=== PATIENT | male | born 1995 | race Caucasian/White ===

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

== ENCOUNTER 2017-02-27 01:01 | Emergency (ER) | payer MEDICAID, OTHER ==
[2017-02-27 01:06] VITALS: TEMP 97.7
[2017-02-27] MEDS ORDERED: HYDRALAZINE HYDROCHLORIDE 20 MG/ML SOL IM PRN (01:12)
[2017-02-27] MEDS ORDERED: HYDRALAZINE HYDROCHLORIDE 20 MG/ML SOL ONE (01:14)
[2017-02-27 01:27] VITALS: O2SAT 98
[2017-02-27 01:47] VITALS: BP 155/81; PULSE 91; RESP 15
== END 2017-02-27 01:58 | disposition home or self-care (01) ==
LOC: ED 01:01
DX: I10 Essential (primary) hypertension (principal); R42 Dizziness and giddiness; R06.00 Dyspnea, unspecified; R07.9 Chest pain, unspecified
CPT/HCPCS: 93005; 99284; J0360

== ENCOUNTER 2017-08-30 15:33 | Emergency (ER) | payer MEDICAID, OTHER ==
[2017-08-30 15:33] VITALS: O2SAT 98
[2017-08-30] MEDS ORDERED: KETOROLAC TROMETHAMINE 30 MG/ML SOL IV ONE (15:39)
[2017-08-30] MEDS ORDERED: HYDROMORPHONE HCL 2 MG/ML SOL IV ONE (15:39)
[2017-08-30] MEDS ORDERED: KETOROLAC TROMETHAMINE 30 MG/ML SOL ONE (15:41)
[2017-08-30] MEDS ORDERED: SODIUM CHLORIDE 0.9% 1000 ML SOL IV SCH (15:45)
[2017-08-30] MEDS ORDERED: HYDROMORPHONE 1 MG/ML SYRINGE ONE (15:52)
[2017-08-30 15:54] VITALS: RESP 18; TEMP 97.9
[2017-08-30 15:56] LABS: CALCIUM 9.3 mg/dl (8.5-10.1); CARBON DIOXIDE 29.9 mEq/L (21-32); CREATININE 1.01 mg/dl (0.80-1.30); POTASSIUM 4.2 mMol/L (3.5-5.1)
[2017-08-30] MEDS ORDERED: SODIUM CHLORIDE 0.9% FLUSH 10 ML SOL IV PRN (15:59)
[2017-08-30] MEDS ORDERED: LIDOCAINE HCL 2% (VISCOUS) 20 ML SOL MT ONE (16:04)
[2017-08-30] MEDS ORDERED: LIDOCAINE HCL 2% (VISCOUS) 20 ML SOL ONE (16:12)
[2017-08-30 17:25] VITALS: BP 132/87; PULSE 57
== END 2017-08-30 17:30 | disposition home or self-care (01) | DRG 935 ==
LOC: ED 15:33
DX: T20.10XA Burn of first degree of head, face, and neck, unspecified site, initial encounter (principal); T22.132A Burn of first degree of left upper arm, initial encounter; T22.131A Burn of first degree of right upper arm, initial encounter; T31.0 Burns involving less than 10% of body surface
CPT/HCPCS: 71045; 80048; 82550; 96365; 96374; 96375; 99284; J1885; A9270-GY; J1170

== ENCOUNTER 2018-05-07 21:35 | Emergency (ER) | payer OTHER ==
[2018-05-07 23:43] VITALS: BP 141/84; PULSE 97; RESP 16; TEMP 97.8; O2SAT 97
== END 2018-05-07 23:00 | disposition home or self-care (01) | DRG 153 ==
LOC: ED 21:35
DX: J06.9 Acute upper respiratory infection, unspecified (principal); R09.81 Nasal congestion
CPT/HCPCS: 99282

== ENCOUNTER 2018-09-17 17:07 | Emergency (ER) | payer OTHER ==
[2018-09-17 17:38] VITALS: RESP 18
[2018-09-17] MEDS ORDERED: BUPIVACAINE HCL 0.25% MPF 30 ML SOL INFIL ONE ×2 (17:51→17:55)
[2018-09-17] MEDS ORDERED: LIDOCAINE BUFFERED 1% 50 ML SOL SC ONE (17:52)
[2018-09-17] MEDS ORDERED: LIDOCAINE HCL 1% MPF 30 SOL ONE (17:56)
[2018-09-17] MEDS ORDERED: LIDOCAINE HCL 1% MPF 30 SOL INFIL ONE (17:59)
[2018-09-17] MEDS ORDERED: BACITRACIN 500 U/GM OIN TOP ONE ×2 (18:46→18:53)
[2018-09-17 19:26] VITALS: BP 125/84; PULSE 72; TEMP 97.3; O2SAT 95
== END 2018-09-17 19:18 | disposition home or self-care (01) | DRG 566 ==
LOC: ED 17:07
DX: M79.5 Residual foreign body in soft tissue (principal); W29.4XXA Contact with nail gun, initial encounter
CPT/HCPCS: 73130; 99282; 99283; A6402; A9270-GY; J2001

== ENCOUNTER 2018-09-27 22:51 | Emergency (ER) | payer OTHER ==
[2018-09-27] MEDS ORDERED: CODEINE/GUAIFENESIN 5 ML ML PO ONE (23:10)
[2018-09-27] MEDS ORDERED: AZITHROMYCIN 250 MG TAB PO ONE (23:11)
[2018-09-27] MEDS ORDERED: CODEINE/GUAIFENESIN 5 ML ML ONE ×2 (23:13→23:15)
[2018-09-27] MEDS ORDERED: AZITHROMYCIN 250 MG TAB ONE (23:14)
[2018-09-27 23:29] VITALS: RESP 16; TEMP 97.8
[2018-09-27 23:52] VITALS: BP 114/75; PULSE 80; O2SAT 96
== END 2018-09-27 23:46 | disposition home or self-care (01) | DRG 153 ==
LOC: ED 22:51
DX: J06.9 Acute upper respiratory infection, unspecified (principal); R05 Cough; J02.9 Acute pharyngitis, unspecified; I10 Essential (primary) hypertension
CPT/HCPCS: 71046; 87430; 99283; A9270-GY